=== PATIENT | female | born 1960 | race Two or more races ===

== ENCOUNTER 2020-01-31 16:08 | Emergency (ER) | payer MEDICAID ==
[~2020-01-31] VITALS: Ht 160 cm; Wt 62.0 kg
[2020-01-31 18:08] LABS: BASOPHILS % 0.7 % (0.0-2.0); CHLORIDE 106 mEq/L (98-107); EOSINOPHILS % 1.3 % (0.0-5.0); HEMATOCRIT. 46.7 % (36.0-48.0); HEMOGLOBIN. 15.8 g/dL (12.0-16.0); LYMPHOCYTES % 28.8 % (20.0-50.0); MEAN CORPUSCULAR VOLUME 85.7 fL (81.0-99.0); MONOCYTES % 8.8 % (2.0-8.0); NEUTROPHILS % 60.4 % (40.0-76.0); RED BLOOD CELL COUNT 5.45 mill/uL (4.2-5.4); RED CELL DISTRIBUTION WIDTH 13.9 % (11.6-14.6)
[2020-01-31 18:18] LABS: MEAN PLATELET VOLUME 10.3 fl (7.4-10.4); PLATELET 235 x1000/uL (130-400)
[2020-01-31 18:21] LABS: PROTHROMBIN TIME 10.4 sec (9.6-11.0)
[2020-01-31 18:38] LABS: CLARITY URINE CLEAR (CLEAR); COLOR URINE YELLOW (YELLOW); KETONES URINE 1+ (NEGATIVE); LEUKOCYTE ESTERASE URINE 1+ (NEGATIVE); NITRITE URINE NEGATIVE (NEGATIVE); OCCULT BLOOD URINE 1+ (NEGATIVE); PH URINE 5.5 (4.5-8.0); PROTEIN URINE NEGATIVE (NEGATIVE); SPECIFIC GRAVITY URINE 1.023 (1.005-1.030)
[2020-01-31 20:22] VITALS: BP 131/75
== END 2020-01-31 20:23 | disposition home or self-care (01) ==
LOC: ER 16:08 → EDBD 16:08 → ER 20:23
DX: R53.1 Weakness (principal); N39.0 Urinary tract infection, site not specified; R53.83 Other fatigue; I10 Essential (primary) hypertension
CPT/HCPCS: 36415; 71045; 80053; 81003; 84484; 85025; 99284